=== PATIENT | male | born 1990 | race Caucasian/White ===

== ENCOUNTER 2020-01-08 14:47 | Emergency (ER) | payer OTHER ==
[~2020-01-08] VITALS: Ht 182.9 cm; Wt 75.0 kg
[2020-01-08 14:59] VITALS: TEMP 98.7
[2020-01-08 16:00] LABS: BASO % 0.5 % (0.0-2.0); EOS # 0.1 (0.0-0.7); EOS % 1.4 % (0-4.0); HEMATOCRIT 47.2 % (42.0-52.0); HEMOGLOBIN 16.2 g/dl (13.5-18.0); LYMPH # 1.7 (1.2-3.4); LYMPH % 25.8 % (20.0-51.0); MEAN CELL VOLUME 86 fl (80.0-100.0); MEAN CORPUSCULAR HEMOGLOBIN 30 pg (27.0-31.0); MEAN CORPUSCULAR HGB CONC 34 g/dl (33.0-37.0); MEAN PLATELET VOLUME 9.9 fl (7.4-10.4); MONO # 0.7 (0.1-0.6); MONO % 11.1 % (1.7-9.3); PLATELET COUNT 258 K/mm3 (130-400); RED BLOOD COUNT 5.48 M/mm3 (4.20-5.60); REDCELL DISTRIBUTION WIDTH-CV 12.6 % (11.5-14.5)
[2020-01-08 16:09] LABS: ALBUMIN 4.6 gm/dL (3.5-5.0); BILIRUBIN,TOTAL 0.7 mg/dL (0.0-1.0); CALCIUM 9.4 mg/dL (8.4-10.2); CREATININE, serum 0.83 (0.66-1.25); TOTAL PROTEIN 7.6 gm/dL (6.4-8.2)
[2020-01-08 16:38] LABS: TSH w REFLEX 1.16 uIU/mL (0.465-4.680)
[2020-01-08 17:45] VITALS: BP 111/64; PULSE 69
== END 2020-01-08 17:45 | disposition home or self-care (01) ==
LOC: COL.ER 14:47
PROVIDERS: Physician Assistant
DX: F41.9 Anxiety disorder, unspecified (principal)
CPT/HCPCS: J2060; J2405; J7030

== ENCOUNTER → 2020-01-29 | Outpatient (CLI) | payer OTHER | LOC: COL.LAB 14:17 | DX: R50.9 Fever, unspecified (principal); R05 Cough ==

== ENCOUNTER → 2020-12-15 | Outpatient (CLI) | payer OTHER | LOC: COL.RAD 14:28 | DX: G44.51 Hemicrania continua (principal); A68.9 Relapsing fever, unspecified ==

== ENCOUNTER → 2021-06-30 | Outpatient (CLI) | payer OTHER | LOC: COL.RAD 07:47 | DX: R51.9 Headache, unspecified (principal); R20.2 Paresthesia of skin; R27.9 Unspecified lack of coordination | CPT/HCPCS: A9585 ==

== ENCOUNTER 2024-07-27 06:21 | Emergency (ER) | payer OTHER ==
[~2024-07-27] VITALS: Ht 182.9 cm; Wt 79.5 kg
[2024-07-27 06:36] VITALS: TEMP 98.1
[2024-07-27 07:53] LABS: BASO % 0.6 % (0.0-2.0); EOS # 0.1 K/mm3 (0.0-0.7); EOS % 1.1 % (0.0-4.0); GRAN # 4.1 K/mm3 (1.4-6.5); GRAN % 63.9 % (42.2-75.2); HEMATOCRIT 47.6 % (42.0-52.0); HEMOGLOBIN 16.4 g/dl (13.5-18.0); LYMPH # 1.7 K/mm3 (1.2-3.4); LYMPH % 25.6 % (20.0-51.0); MEAN CELL VOLUME 86 fl (80.0-100.0); MEAN CORPUSCULAR HEMOGLOBIN 30 pg (27-31); MEAN CORPUSCULAR HGB CONC 35 g/dl (33.0-37.0); MEAN PLATELET VOLUME 9.9 fl (7.4-10.4); MONO # 0.6 K/mm3 (0.1-0.6); MONO % 8.6 % (1.7-9.3); PLATELET COUNT 259 K/mm3 (130-400); RED BLOOD COUNT 5.51 M/mm3 (4.20-5.60); REDCELL DISTRIBUTION WIDTH-CV 12.2 % (11.5-14.5)
[2024-07-27 07:55] LABS: COLLECTION METHOD CLEAN CATCH
[2024-07-27 07:56] LABS: URINE APPEARANCE CLEAR (CLEAR/HAZY); URINE BLOOD NEGATIVE (NEGATIVE); URINE COLOR YELLOW (YELLOW); URINE GLUCOSE NEGATIVE (NEGATIVE); URINE KETONE TRACE (NEGATIVE); URINE NITRATE NEGATIVE (NEGATIVE); URINE PROTEIN(semi-quant) NEGATIVE (NEGATIVE)
[2024-07-27] MEDS ORDERED: Iohexol 300 - 100 ML VIAL IV ONE (08:10)
[2024-07-27] MEDS ORDERED: NS 100 ML IV SCH (08:11)
[2024-07-27 08:13] LABS: ALBUMIN 4.6 g/dL (3.5-5.0); CALCIUM 9.5 mg/dL (8.4-10.2); CREATININE, serum 0.93 mg/dL (0.72-1.25); POTASSIUM 4.2 mEq/L (3.5-4.5); TOTAL PROTEIN 7.8 g/dl (6.2-8.1)
[2024-07-27 09:26] VITALS: BP 128/79; PULSE 62
== END 2024-07-27 09:26 | disposition home or self-care (01) ==
LOC: COL.ER 06:21
PROVIDERS: Family Medicine
DX: N50.9 Disorder of male genital organs, unspecified (principal)
CPT/HCPCS: Q9967